=== PATIENT | male | born 1980 | race Caucasian/White ===

== ENCOUNTER → 2018-05-16 | Outpatient (CLI) | payer OTHER ==
[~2018-05-16] MED LIST: IOPAMIDOL (ISOVUE-300) 100 ML BTL ONE
== END ==
LOC: FIMAGING 15:43
PROVIDERS: ATTEND Specialist
DX: N52.9 Male erectile dysfunction, unspecified (principal); R10.11 Right upper quadrant pain; K59.00 Constipation, unspecified; M47.897 Other spondylosis, lumbosacral region
CPT/HCPCS: Q9967